=== PATIENT | male | born 1985 | race Caucasian/White ===

== ENCOUNTER 2022-09-22 21:57 | Emergency (ER) | payer OTHER ==
[2022-09-22] MEDS ORDERED: Acetaminophen 500 MG Tab PO ONE (22:51)
[2022-09-22] MEDS ORDERED: Diphtheria,Pertussis(Acell),Tetanus Vaccine 0.5 ML Syringe IM ONE (22:59)
== END 2022-09-23 00:35 | disposition home or self-care (01) ==
LOC: MERGE 21:57 → VM.ED 21:57
DX: S62.614A Displaced fracture of proximal phalanx of right ring finger, initial encounter for closed fracture (principal); S06.9X9A Unspecified intracranial injury with loss of consciousness of unspecified duration, initial encounter; S01.01XA Laceration without foreign body of scalp, initial encounter; Z23 Encounter for immunization; V86.55XA Driver of 3- or 4- wheeled all-terrain vehicle (ATV) injured in nontraffic accident, initial encounter
CPT/HCPCS: 70450; 72125; 73140-F3; 99284; A9270-GY